=== PATIENT | male | born 1950 | race Caucasian/White ===

== ENCOUNTER 2017-03-25 14:27 | Emergency (ER) | payer OTHER ==
[2017-03-25 14:47] VITALS: BP 137/84
--- NOTE | 2017-03-25 16:05 | UC ---
Piero Candelario Benjamin, scribed for Uma Pimentel MD on 03/25/17 at 1559 . Abdominal Pain Male HPI - HPI Summary HPI Summary: 66yo male c/o constant LLQ pain since yesterday afternoon. Pt states that his pain gets mildly worse with BM. Denies nausea, diarrhea, bloody or black stool, change in bowel, urinary symptoms: dysuria, hematuria, or pain in penis. No rectal pain. No fever or chills. Pt hasn't taken anything for pain [employer]. No nausea, vomiting, no h/o similar. 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 Denies injury. Pain is worse with movement. no known h/o diverticulosis /itis PMHx includes Appy, testicular surgery for vericocle. Pt had Colonoscopy x2 First one was for screening check-up at the age of 49, and the second one was for GI bleed. Pt has a appointment for another colonscopy scheduled at 04/19/17. Pt occasionally drinks, but denies any tabacco or any other drug use. FHx of CA and CAD, but pt denies any CP. Reviewed pts medication and allergy lists. - History of Current Complaint Chief Complaint: UCAbdominalPain Stated Complaint: LOWER LEFT ABDOMINAL PAIN Time Seen by Provider: 03/25/17 15:44 Hx Obtained From: Patient Onset/Duration: Sudden Onset, Lasting Days - since yesterday afternoon, Still Present Timing: Constant Severity Initially: Mild Severity Currently: Mild Pain Intensity: 2 Location: Discrete At: LLQ Radiates: No Alleviating Factor(s): Nothing Associated Signs And Symptoms: Negative: Fever, Blood in Stool, Urinary Symptoms , Nausea, Vomiting, Diarrhea, Penile Discharge - Allergies/Home Medications Allergies/Adverse Reactions: Allergies Allergy/AdvReac Type Severity Reaction Status Date / Time Erythromycin AdvReac Severe Vomiting Verified 01/09/15 13:40 Home Medications: Home Medications NK [No Home Medications Reported] 03/25/17 [History Confirmed 03/25/17] PMH/Surg Hx/FS Hx/Imm Hx Previously Healthy: No GI/ History: Gastrointestional Bleed, Other - appendicitis Other GI/ History: appendicitis - Surgical History Surgical History: Yes Surgery Procedure, Year, and Place: appy.r knee,testicals - Family History Known Family History: Positive: Cardiac Disease, Other - CA - Social History Occupation: Employed Full-time Lives: With Family Alcohol Use: Occasionally Substance Use Type: None Smoking Status (MU): Former Smoker Review of Systems Constitutional: Negative Skin: Negative Eyes: Negative ENT: Negative Respiratory: Negative Cardiovascular: Negative Gastrointestinal: Abdominal Pain - LLQ pain Genitourinary: Negative Motor: Negative Neurovascular: Negative Musculoskeletal: Negative Neurological: Negative Psychological: Negative All Other Systems Reviewed And Are Negative: Yes Physical Exam Triage Information Reviewed: Yes Appearance: Well-Appearing, No Pain Distress, Well-Nourished Vital Signs: Initial Vital Signs Temp 98 F 03/25/17 14:44 Pulse 76 03/25/17 14:44 Resp 16 03/25/17 14:44 BP 137/84 03/25/17 14:44 Pulse Ox 100 03/25/17 14:44 Vital Signs Reviewed: Yes Eye Exam: Normal Eyes: Positive: Conjunctiva Clear. Negative: Discharge ENT Exam: Normal ENT: Positive: Hearing grossly normal, Pharynx normal, TMs normal. Negative: Nasal drainage Neck exam: Normal Neck: Positive: Supple, Nontender, No Lymphadenopathy Respiratory Exam: Normal Respiratory: Positive: Chest non-tender, Lungs clear, Normal breath sounds, No respiratory distress, No accessory muscle use Cardiovascular Exam: Normal Cardiovascular: Positive: RRR, No Murmur Abdominal Exam: Normal Abdomen Description: Positive: No Organomegaly, Soft, Other: - mild TTP LLQ with deep palp. No guarding, no rebound abd soft + BS Pt easily changes positon - standing to sitting to lying Bowel Sounds: Positive: Present Musculoskeletal Exam: Normal Musculoskeletal: Positive: Strength Intact Neurological Exam: Normal Psychological Exam: Normal Skin Exam: Normal Diagnostics - Laboratory Diagnostic Studies Completed/Ordered: POC UA: normal urine. - Radiology Abd Pelv CT WO Xray Interpretation: No Acute Changes - IMPRESSION: 1. No acute inflammatory change involving the gastrointestinal tract or evidence of nephrolithiasis of either kidney. 2. Chronic, degenerative and iatrogenic findings described in body the report unlikely to be related directly to the patient's current presentation. Radiology Interpretation Completed By: Radiologist Re-Evaluation - Re-Evaluation First Eval Re-Evaluation Time: 17:21 Comment: Discussed lab and imaging results with the pt, as well as pt's course of treatment and disposition. Pt without focal finding to explain pain. Possibly related to musculoskeletal. Pt well appearing with stable vital signs. will d/c home. Pt to go to ED for any changes, concerns -fevers, chills , rash, vomiting, black stool or any other concners. Pt to call PCP for follow- up this week. Pt comfortable and in agreement with plan Abd Pain Male Course/Dx - Course Course Of Treatment: Pt present with 24 hour LLQ - worse with movement and deep palp. Pt states has had in the past - improves with BM - this has not. no other sx. no analgesia taken. Pt well appearing with stable VS. diff includes diverticulitis, UTI, muscle strain, renal colic. d/w pt limitations of urgent care. will check urine. will check CT ab/pel withotu contrast - if neg - will consider f/u with [facility] [place] [facility] - Differential Dx/Clinical Impression Provider Diagnoses: abdominal pain Discharge - Discharge Plan Condition: Stable Disposition: HOME Patient Education Materials: Abdominal Pain (ED) Referrals: Gary Pink MD [Primary Care Provider] - Additional Instructions: The doctor that examined you today is not sure what is causing your pain, but thinks it is okay for you to go home It is recommended you take Tylenol or ibuprofen for pain IT is recommended you stay well hydrated. If you develop any changes to your symptoms - increased pain, vomiting, fevers, chills, back pain or ANY other concerns you should call 911 or go to the emergency department immediate. AVoid heavy lifting or strenuous activity Call your doctor to schedule a follow-up appointment this week. Go to the Emergency Department if your symptoms persist or worsen, especially if you experience severe increase in pain, shortness of breath, chest pain, headache, changes in vision, nausea, vomiting, fever, numbness, inability to walk, inability to eat or drink, or changes in behavior. Also please feel free to return to the ED for reevaluation at anytime you feel the condition warrants such a visit or you are unable contact your primary care doctor. The documentation as recorded by the Piero ramesh Benjamin accurately reflects the service I personally performed and the decisions made by me, Uma Pimentel MD.
--- NOTE | 2017-03-25 17:17 | RAD ---
CLINICAL HISTORY: Left lower quadrant pain x2 days. Relevant surgical history includes appendectomy and "VERICOSEAL testicals" COMPARISON: CT chest abdomen pelvis dated July 20, 2015 TECHNIQUE: Noncontrast CT examination of the abdomen and pelvis from the lung bases through the initial tuberosities. FINDINGS: VISUALIZED LUNG BASES: The visualized lung bases are grossly clear. There is no pleural effusion. ABDOMEN AND PELVIS: Evaluation of the solid organs and vasculature is limited without intravenous contrast. The liver, spleen, pancreas and adrenal glands are grossly normal in appearance. The gallbladder is normal. The kidneys are normal in appearance without focal mass, calcification or signs of hydronephrosis. The small and large bowel are not distended.The patient's normal appendix is identified in the right lower quadrant. There is no gross retroperitoneal or mesenteric lymphadenopathy. Coarse calcifications are noted in the prostate gland. There are small bilateral fat-containing inguinal hernias slightly larger on the right and the left. There is scattered calcified atherosclerosis of the abdominal aorta. Degenerative changes include multilevel loss of intervertebral disc height involving the lower thoracic and lumbar spine. There has been further compression deformity of the L1 vertebral body with sclerotic change at the previously identified site of fracture. IMPRESSION: 1. No acute inflammatory change involving the gastrointestinal tract or evidence of nephrolithiasis of either kidney. 2. Chronic, degenerative and iatrogenic findings described in body the report unlikely to be related directly to the patient's current presentation.
== END 2017-03-25 17:50 | disposition home or self-care (01) ==
LOC: UCEAST 14:27
DX: R10.32 Left lower quadrant pain (principal); Z88.3 Allergy status to other anti-infective agents; Z87.891 Personal history of nicotine dependence
CPT/HCPCS: 74176; 81003; 99212; G0463

== ENCOUNTER 2017-04-15 10:01 | Emergency (ER) | payer OTHER ==
[2017-04-15 10:07] VITALS: BP 125/89
--- NOTE | 2017-04-15 10:41 | ED ---
Throat Pain/Nasal Congestion - HPI Summary HPI Summary: 66M presents with right ear pain for 4 days. He states that he has a decrease in hearing from his ears being plugged. He tried placing drops in the ear and irrigating the ear and it has not improved in the past 4 days. He denies any fevers or drainage from his ear. He denies any history of ear infection. He has no medical conditions. He has not taken anything for pain. - History of Current Complaint Chief Complaint: UCEar Time Seen by Provider: 04/15/17 10:13 - Allergies/Home Medications Allergies/Adverse Reactions: Allergies Allergy/AdvReac Type Severity Reaction Status Date / Time Erythromycin AdvReac Severe Vomiting Verified 04/15/17 10:07 PMH/Surg Hx/FS Hx/Imm Hx Endocrine/Hematology History: Denies: Hx Diabetes Respiratory History: Denies: Hx Chronic Obstructive Pulmonary Disease (COPD) - Surgical History Surgery Procedure, Year, and Place: [facility] Infectious Disease History: No Infectious Disease History: Denies: Hx Clostridium Difficile, Hx Hepatitis, Hx Human Immunodeficiency Virus (HIV), Hx of Known/Suspected MRSA, Hx Shingles, Hx Tuberculosis, Hx Known/ Suspected VRE, Hx Known/Suspected VRSA, History Other Infectious Disease, Traveled Outside the [place] in Last 30 Days - Family History Known Family History: Positive: Cardiac Disease, Other - CA - Social History Alcohol Use: Occasionally Substance Use Type: Reports: None Smoking Status (MU): Former Smoker Review of Systems Negative: Fever Positive: Ear Ache Negative: Shortness Of Breath All Other Systems Reviewed And Are Negative: Yes Physical Exam Triage Information Reviewed: Yes Vital Signs On Initial Exam: Initial Vitals Temp Pulse Resp BP Pulse Ox 98.0 F 64 18 125/89 100 04/15/17 10:04 04/15/17 10:04 04/15/17 10:04 04/15/17 10:04 04/15/17 10:04 Vital Signs Reviewed: Yes Appearance: Positive: Well-Appearing Skin: Positive: Warm, Dry Head/Face: Positive: Normal Head/Face Inspection Eyes: Positive: Normal, EOMI, MIKAEL, Conjunctiva Clear ENT: Positive: Pharynx normal, TMs normal, Other - canal erythematous and edematous, tenderness to tragus manipulation Neck: Positive: Supple, Nontender, No Lymphadenopathy Respiratory/Lung Sounds: Positive: Clear to Auscultation, Breath Sounds Present Cardiovascular: Positive: Normal, RRR Diagnostics - Vital Signs Vital Signs Temp Pulse Resp BP Pulse Ox 04/15/17 10:04 98.0 F 64 18 125/89 100 - Laboratory Lab Statement: Any lab studies that have been ordered have been reviewed, and results considered in the medical decision making process. EENT Course/Dx - Course Course Of Treatment: 66M presents with right ear pain for 4 days. He states that he has a decrease in hearing from his ears being plugged. He tried placing drops in the ear and irrigating the ear and it has not improved in the past 4 days. He denies any fevers or drainage from his ear. He denies any history of ear infection. on exam has some wax in ear canal. tenderness to tragus. after irrigation done by nurse TM seen normal. and ear canal at end is erythematous and edematous. will treat with ciprodex. patient understands and agrees with plan. - Differential Diagnoses Differential Diagnoses: Cerumen Impaction, Otitis Externa, Otitis Media - Diagnoses Provider Diagnoses: Right otitis externa Discharge - Discharge Plan Condition: Good Disposition: HOME Prescriptions: Ciproflox/Dexameth OTIC.SUSP* [Ciprodex OTIC.SUSP*] 1 drop OTIC BID #1 btl Patient Education Materials: Otitis Externa (ED) Referrals: Gary Pink MD [Primary Care Provider] - Additional Instructions: Use 4 drops twice a day for 7 days Follow up with primary in a week to make sure resolving Return to ED if develop any new or worsening symptoms
== END 2017-04-15 10:50 | disposition home or self-care (01) ==
LOC: UCEAST 10:01
DX: H60.91 Unspecified otitis externa, right ear (principal); Z88.1 Allergy status to other antibiotic agents; Z87.891 Personal history of nicotine dependence
CPT/HCPCS: 99213; G0463

== ENCOUNTER 2017-06-03 13:42 | Emergency (ER) | payer MEDICARE ==
[2017-06-03 14:19] VITALS: BP 130/89
[2017-06-03] MEDS ORDERED: Naproxen TAB* 250 MG PO ONE (14:43)
--- NOTE | 2017-06-03 14:49 | UC ---
Lower Extremity/Ankle HPI - HPI Summary HPI Summary: Horse stepped on pt's L foot about a week ago. Did not have significant pain the day it happened; mild pain started about 4 hours after injury. In the last 2 -3 days has had marked increase in redness and swelling with darker blade on the foot. - History of Current Complaint Hx Obtained From: Patient Onset/Duration: Gradual Onset Severity Initially: Mild Severity Currently: Moderate Aggravating Factor(s): Standing, Ambulation Alleviating Factor(s): Rest Able to Bear Weight: Yes <Yumi Mathis - Last Filed: 06/03/17 15:25> <Uma Pimentel - Last Filed: 06/03/17 16:42> - History of Current Complaint Chief Complaint: UCLowerExtremity Stated Complaint: FOOT INJURY Time Seen by Provider: 06/03/17 14:35 - Allergies/Home Medications Allergies/Adverse Reactions: Allergies Allergy/AdvReac Type Severity Reaction Status Date / Time Erythromycin AdvReac Severe Vomiting Verified 04/15/17 10:07 PMH/Surg Hx/FS Hx/Imm Hx Previously Healthy: Yes - Surgical History Surgical History: Yes Surgery Procedure, Year, and Place: appy.r knee,testicals - Family History Known Family History: Positive: Cardiac Disease, Other - CA - Social History Occupation: Employed Full-time Lives: With Family Alcohol Use: Occasionally Substance Use Type: None Smoking Status (MU): Former Smoker <Yumi Mahtis - Last Filed: 06/03/17 15:25> Review of Systems Constitutional: Negative Skin: Other - redness, pain in L foot Eyes: Negative ENT: Negative Respiratory: Negative Cardiovascular: Negative Gastrointestinal: Negative Genitourinary: Negative Motor: Negative Neurovascular: Negative Musculoskeletal: Negative Neurological: Negative Psychological: Negative Is Patient Immunocompromised?: No All Other Systems Reviewed And Are Negative: Yes <Yumi Mathis - Last Filed: 06/03/17 15:25> Physical Exam Triage Information Reviewed: Yes Appearance: Well-Appearing, No Pain Distress, Well-Nourished Vital Signs: Initial Vital Signs Temp 98.4 F 06/03/17 14:14 Pulse 85 06/03/17 14:14 Resp 18 06/03/17 14:14 BP 130/89 06/03/17 14:14 Pulse Ox 98 06/03/17 14:14 Vital Signs Reviewed: Yes Eye Exam: Normal Eyes: Positive: Conjunctiva Clear ENT Exam: Normal ENT: Positive: Normal ENT inspection, Hearing grossly normal, Pharynx normal, TMs normal Dental Exam: Normal Neck exam: Normal Neck: Positive: Supple, Nontender, No Lymphadenopathy Respiratory Exam: Normal Respiratory: Positive: Chest non-tender, Lungs clear, Normal breath sounds, No respiratory distress, No accessory muscle use Cardiovascular Exam: Normal Cardiovascular: Positive: RRR, No Murmur Musculoskeletal: Positive: ROM Intact, Other: - tender, red painful area on L dorsal Neurological Exam: Normal Neurological: Positive: Alert Psychological Exam: Normal Skin Exam: Other - redness over dorsum of L foot with darker center, tender <Yumi Mathis - Last Filed: 06/03/17 15:25> Vital Signs: Initial Vital Signs Temp 98.4 F 06/03/17 14:14 Pulse 85 06/03/17 14:14 Resp 18 06/03/17 14:14 BP 130/89 06/03/17 14:14 Pulse Ox 98 06/03/17 14:14 <Uma Pimentel - Last Filed: 06/03/17 16:42> Diagnostics - Radiology No standard instances Xray Interpretation: No Acute Changes - No bony injury Radiology Interpretation Completed By: Radiologist <Yumi Mathis - Last Filed: 06/03/17 15:25> Lower Extremity Course/Dx - Differential Dx/Diagnosis Provider Diagnoses: Crush injury L foot. cellulitis L foot <Yumi Mathis - Last Filed: 06/03/17 15:25> Discharge <Yumi Mathis - Last Filed: 06/03/17 15:25> <Uma Pimentel - Last Filed: 06/03/17 16:42> - Discharge Plan Condition: Stable Disposition: HOME Prescriptions: Sulfamethox/Trimethoprim DS* [Bactrim DS 800/160 TAB*] 1 tab PO BID #14 tab Patient Education Materials: Cellulitis (ED), Crush Injury (ED) Referrals: Gary Pink MD [Primary Care Provider] - 3 Days Additional Instructions: Elevate the foot for at least an hour 4 times per day. Apply warm compresses for 30-60 minutes at a time. If you do not see clear clinical improvement within 48 hours, please see your primary care office (you may be able to get an appointment to see me, but anyone would be fine). If you have high fever or rapid worsening, please go to the hospital. Attestation Statement User Type: Provider - I was available for consult. This patient was seen by the SUZANNE. The patient was not presented to, seen by, or examined by me. -José Miguel <Uma Pimentel - Last Filed: 06/03/17 16:42>
--- NOTE | 2017-06-03 15:21 | RAD ---
Indication: Pain over the proximal third metatarsal following injury one week ago; stepped on by horse. Comparison: January 05, 2014 radiographs. Technique: AP, lateral, and oblique views LEFT foot. Report: No fracture or stress reaction evident. Negative for dislocation. Suggestion of second through fifth hammertoe deformities. Small plantar fascia origin bone spur. Soft tissue swelling most prominent over the dorsum of the foot. IMPRESSION: Soft tissue swelling most prominent over the dorsum of the foot. Negative for fracture.
== END 2017-06-03 15:55 | disposition home or self-care (01) ==
LOC: UCEAST 13:42
DX: S97.82XA Crushing injury of left foot, initial encounter (principal); Z87.891 Personal history of nicotine dependence; W55.19XA Other contact with horse, initial encounter; Y92.9 Unspecified place or not applicable; L03.116 Cellulitis of left lower limb
CPT/HCPCS: 99212; A9270-GY; G0463